=== PATIENT | male | born 1980 | race Caucasian/White ===

== ENCOUNTER 2019-10-24 06:22 | Day surgery (SDC) | payer OTHER ==
[2019-10-22 09:58] VITALS: BMI 27.1
--- NOTE | 2019-10-23 13:50 | P.GSHP ---
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 He has failed treatment with Condylox and Aldara. He is . He and his are monogamous, and use condoms. - Constitutional Constitutional: Denies chills, Denies fever - Cardiovascular Cardiovascular: Denies chest pain - Respiratory Respiratory: Denies dyspnea - Gastrointestinal Gastrointestinal: Reports heartburn - Genitourinary (Female) Genitourinary: Denies dysuria, Denies hematuria Past Medical History - Past Family History Mother Family Medical History: No Reported History Medications and Allergies Home Medications Medication Instructions Recorded Confirmed Type No Known Home Medications 10/22/19 10/22/19 History Allergies Allergy/AdvReac Type Severity Reaction Status Date / Time Penicillins Allergy Unknown Unknown Verified 10/22/19 09:53 Childhood Sulfa (Sulfonamide Allergy Unknown Unknown Verified 10/22/19 09:53 Antibiotics) Childhood Surgical - Exam - General well developed, well nourished, no distress - Respiratory normal respiratory effort, clear to auscultation - Cardiovascular Rhythm: regular Abnormal Heart Sounds: no systolic murmur, no diastolic murmur, no rub, no S3 Gallop, no S4 Gallop, no click, no other - Abdomen Abdomen: soft, non tender, no guarding, no rigid, no rebound - Genitourinary testicles non-tender, other (The penis is circumcised. Approximately 8 condyloma are seen, 7 dorsally and one ventrally. All measure less than 5 mm in size.) - Psychiatric oriented to time, oriented to person, oriented to place, speech is normal, memory intact Assessment and Plan (1) Anogenital (venereal) warts Status: Acute Code(s): A63.0 - ANOGENITAL (VENEREAL) WARTS SNOMED Code(s): 397398254 Plan: I had a lengthy discussion with the patient regarding condyloma treatment options. He has failed topical therapy. I discussed cryo-surgery and CO2 laser ablation as options. The pros and cons of each were reviewed, and he has elected to undergo the latter. He understands potential risks to include anesthesia, scarring, and condyloma recurrence.
[~2019-10-24 06:22] MED LIST: DEXAMETHASONE SOD PHOSPHATE 10 MG/ML 1 ML VIAL IV ONE; HYDROmorphone 0.5 MG/0.5 ML SYRINGE IVP PRN; LACTATED RINGERS 1,000 ML IV SCH; LIDOCAINE 1% (10MG/ML) FOR IV START INTRADERMA PRN; ONDANSETRON 4 MG/2 ML VIAL IVP ONE; Pre Op ABX Message 1 EACH MISC MISCELLANE ONE
[2019-10-24] MEDS ORDERED: ONDANSETRON 4 MG/2 ML VIAL ONE (06:44)
[2019-10-24] MEDS ORDERED: PROPOFOL 10 MG/ML 20 ML VIAL IV ONE (07:33)
[2019-10-24] MEDS ORDERED: MIDAZOLAM 2 MG/2 ML VIAL ONE (07:33)
[2019-10-24] MEDS ORDERED: fentaNYL (PF) 50 MCG/ML 2 ML AMP ONE (07:33)
[2019-10-24] MEDS ORDERED: LIDOCAINE 1% INJ 10MG/ML (20 ML MDV) ONE (07:33)
[2019-10-24] MEDS ORDERED: SUCCINYLCHOLINE CHLORIDE 100 MG/5 ML SYR IV ONE (07:33)
[2019-10-24] MEDS ORDERED: LACTATED RINGERS 1,000 ML IV ONE (08:19)
[2019-10-24 08:36] VITALS: RESP 16; TEMP 96.8
--- NOTE | 2019-10-24 08:42 | P.OP ---
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 He has failed treatment with Condylox and Aldara. He is . He and his are monogamous, and use condoms. Operative Findings: 8 small penile condyloma, 7 on the dorsal phallus and 1 on the ventral phallus. Description of Procedure: The patient was taken to the operating room and placed in the supine position. The external genitalia was prepped and draped sterilely. Towels were placed around the penis. The CO2 laser was utilized at a setting of 3 W. The ventral lesion was located at the penile base and measured only approximately 2 mm in size. This was initially vaporized. Attention was then paid to the dorsal phallus. 7 condyloma were seen at the penile base. 4 were immediately adjacent to one another, to the right of the midline. The others were to the left of the midline. All were vaporized. All condyloma measured 4 mm or smaller in size. The larger of the dorsal lesions were vaporized, and the eschar was scraped away using an 10 blade scalpel prior to retreating the base of the lesion. No other lesions were seen. Once the procedure was completed, Silvadene cream was applied to the lesions. The patient tolerated the procedure well was taken to the recovery room in stable condition.
[2019-10-24 09:11] VITALS: PULSE 64
[2019-10-24 09:25] VITALS: BP 126/81
== END 2019-10-24 09:36 | disposition home or self-care (01) ==
LOC: OR 06:22
PROVIDERS: ATTEND Urology
DX: A63.0 Anogenital (venereal) warts (principal); Z88.2 Allergy status to sulfonamides; Z88.0 Allergy status to penicillin
CPT/HCPCS: 54057; J2250; J1100; J2405; J2001; J3010; J0330; J2704

== ENCOUNTER 2021-05-28 04:57 | Emergency (ER) | payer OTHER ==
[2021-05-28 05:11] VITALS: BP 125/88; PULSE 80; RESP 20; TEMP 98.5
--- NOTE | 2021-05-28 05:32 | ED ---
General Adult HPI - General Chief complaint: Recheck/Abnormal Lab/Rx Stated complaint: [facility] drug screen Time Seen by Provider: 05/28/21 05:31 Source: patient Mode of arrival: ambulatory - History of Present Illness Initial comments: Patient is 41-year-old man sent here following a misstep at work tonight. He is to have testing. He declines to have medical screening exam. - Related Data Home Medications Medication Instructions Recorded Confirmed No Known Home Medications 10/22/19 10/24/19 Allergies Allergy/AdvReac Type Severity Reaction Status Date / Time Penicillins Allergy Unknown Unknown Verified 05/28/21 05:05 Childhood Sulfa (Sulfonamide Allergy Unknown Unknown Verified 05/28/21 05:05 Antibiotics) Childhood Review of Systems ROS Statement: Those systems with pertinent positive or pertinent negative responses have been documented in the HPI. ROS Other: All systems not noted in ROS Statement are negative. Past Medical History Past Medical History: GERD/Reflux Additional Past Medical History / Comment(s): occasional gerd, genital warts History of Any Multi-Drug Resistant Organisms: None Reported Past Surgical History: Tonsillectomy Additional Past Surgical History / Comment(s): Tonsills (child) Additional Past Anesthesia/Blood Transfusion Reaction / Comment(s): only surgery as a child. Past Psychological History: No Psychological Hx Reported Smoking Status: Never smoker Past Alcohol Use History: Occasional Past Drug Use History: None Reported - Past Family History Mother Family Medical History: No Reported History Course Vital Signs 05/28/21 05:08 Temperature 98.5 F Pulse Rate 80 Respiratory 20 Rate Blood Pressure 125/88 O2 Sat by Pulse 96 Oximetry Disposition Clinical Impression: Encounter for employment-related drug testing Disposition: HOME SELF-CARE Condition: Stable Is patient prescribed a controlled substance at d/c from ED?: No Referrals: Spencer Santiago MD [Primary Care Provider] - 1-2 days
== END 2021-05-28 05:39 | disposition home or self-care (01) ==
LOC: EC 04:57
DX: Z02.83 Encounter for blood-alcohol and blood-drug test (principal); K21.9 Gastro-esophageal reflux disease without esophagitis; Z88.0 Allergy status to penicillin; Z88.2 Allergy status to sulfonamides
CPT/HCPCS: 99281